=== PATIENT | female | born 1985 | race Caucasian/White ===

== ENCOUNTER 2020-03-30 12:41 | Emergency (ER) | payer BC, SELFPAY ==
[2020-03-30 12:46] VITALS: BP 148/80; PULSE 93; RESP 17; TEMP 36.2; O2SAT 100
--- NOTE | 2020-03-30 12:46 | ED_ITS ---
HPI - Headache General Chief Complaint: Headache Stated Complaint: Migraine Time Seen by Provider: 03/30/20 12:46 History of Present Illness HPI Narrative: 35 yo female w/ h/o migraines presents to the ED c/o a headache. She awoke from sleep this morning with a pounding headache. She tried excederin, but it has continued to get worse throughout the day. Associated wtih photophobia, phonophobia, and nausea. This is typical for past migraines, although this is worse than any she has had in years. No fever, weakness, numbness, cough cngestion. Related Data Allergies Allergy/AdvReac Type Severity Reaction Status Date / Time codeine Allergy Nausea/vomi Verified 03/30/20 12:55 tting Review of Systems Review of Systems: All systems reviewed & are unremarkable except as noted in HPI and below Constitutional: Constitutional: Reports chills, Denies fever(s) and Denies weakness Eyes: Eyes: Denies change in vision and Reports photophobia ENT: Denies sore throat Cardiovascular: Cardiovascular: Denies chest pain Respiratory: Respiratory: Denies cough and Denies dyspnea Gastrointestinal: Gastrointestinal: Denies abdominal pain, Reports nausea and Denies vomiting Genitourinary: Genitourinary: Denies dysuria Musculoskeletal: Musculoskeletal: Denies back pain Neurologic: Denies dizziness, Reports headache(s) and Denies weakness PMFSH Past Medical History Medical History (Updated 03/30/20 @ 12:56 by Antolin Smith MD) Migraine Social History Social History (Updated 03/30/20 @ 12:56 by Antolin Smith MD) Smoking status: Never smoker Exam Const: General: healthy appearing, no acute distress and alert Orientation/consciousness: patient oriented x3 HENMT: Head: normal to inspection Eyes: Conjunctivae: conjunctivae normal Pupils: Equal, round and reactive pupils present EOM: EOMs intact bilaterally Neck: Neck: normal visual inspection Resp: Effort & Inspection: normal respiratory effort Cardio: Jugular venous distension: no JVD Skin: General skin exam: normal color Neuro: General: patient oriented x3, moves all extremities, no focal motor deficits and CN's II-XI intact bilaterally Speech: normal speech Psych: Appearance: well kempt Affect: normal affect Course Vital Signs Vital signs: Vital Signs Temperature 36.2 C L 03/30/20 12:46 Pulse Rate 93 10/28/20 12:46 Respiratory Rate 17 03/30/20 12:46 Blood Pressure 148/80 H 03/30/20 12:46 Pulse Oximetry 100 03/30/20 12:46 Temperature 36.2 C L 03/30/20 12:46 Pulse Rate 93 03/30/20 12:46 Respiratory Rate 17 03/30/20 12:46 Blood Pressure 148/80 H 03/30/20 12:46 Pulse Oximetry 100 03/30/20 12:46 MDM - Headache MDM Narrative Medical decision making narrative: SIMPSON resolved with treatment Differential Diagnosis Differential diagnosis: Likely migraine and tension headache Medical Records Attestation: I reviewed the patient's medical records. Discharge Plan Discharge Follow-up/Referrals: PHYSICIAN,RESIDENTIAL RECYCLE DRIVER [Primary Care Provider] -
[2020-03-30] MEDS: diphenhydrAMINE HCl INJ 50 MG/ML VIAL 25 MG IV PUSH (13:07)
[2020-03-30] MEDS: KETOROLAC 30 MG/ML VIAL (*BKC) IV PUSH (13:09)
[2020-03-30] MEDS: METOCLOPRAMIDE HCL INJ 10 MG/2 ML VIAL IV PUSH (13:09)
== END 2020-03-30 14:33 | disposition home or self-care (01) ==
PROVIDERS: Emergency Provider Emergency Medicine
DX: G43.909 Migraine, unspecified, not intractable, without status migrainosus (principal)
CPT/HCPCS: 96374; 96375; 99284; J0131; J1200; J1885; J2765